=== PATIENT | female | born 1980 | race Caucasian/White ===

== ENCOUNTER → 2018-12-02 | Outpatient (CLI) | payer OTHER ==
[~2018-12-02] MED LIST: AZI250 PO; DIP25 PO; DOC240 PO; FAMO-67 PO; FERR325C2 PO; FLAX100029 PO; FLUT16SP19 NS; GLUC100026 PO; IBU600 PO; IBU800 PO; LORA10TA2 PO; LYSI500T PO; MET10 PO; METR250 PO; MULT-820 PO; PER PO; PREN-85 PO; TYPH1CAP7 PO; VALA100062 PO
== END ==
LOC: LAB 07:49
PROVIDERS: ATTEND Obstetrics & Gynecology
DX: Z02.82 Encounter for adoption services (principal)
CPT/HCPCS: 86580

== ENCOUNTER → 2019-02-25 | Outpatient (CLI) | payer OTHER ==
[~2019-02-25] MED LIST changes: +TRIA15CR40 TP
== END ==
LOC: LAB 11:53
PROVIDERS: ATTEND Nurse Practitioner Primary Care
DX: J02.9 Acute pharyngitis, unspecified (principal)
CPT/HCPCS: 87081